=== PATIENT | male | born 1985 | race Caucasian/White ===

== ENCOUNTER 2018-10-31 22:45 | Emergency (ER) | payer OTHER ==
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
== END 2018-10-31 23:40 | disposition home or self-care (01) ==
LOC: KA.ED 22:45
DX: Z20.3 Contact with and (suspected) exposure to rabies (principal); W55.82XA Struck by other mammals, initial encounter
CPT/HCPCS: 99283